=== PATIENT | male | born 1995 | race Caucasian/White ===

== ENCOUNTER 2018-12-23 01:37 | Observation (INO) ==
[2018-12-23] MEDS ORDERED: ONDANSETRON INJ 2 MG/ML 2 ML VIAL IV STA (01:44)
[2018-12-23] MEDS ORDERED: MoRPHine SULFATE 4 MG/ML 1 ML CARP\\VIAL IV PRN ×2 (01:44→13:36)
[2018-12-23] MEDS ORDERED: SODIUM CHLORIDE 0.9% 1000ML 1,000 ML IV SCH (01:45)
[2018-12-23 03:50] LABS: Alanine Aminotransferase 25 U/L (12-78); Albumin Globulin Ratio 1.4 (0.9-2); Albumin Level 4.4 gm/dl (3.4-5.0); Alkaline Phosphatase 60 U/L (45-117); Aspartate Aminotransferase 17 U/L (15-37); BUN Creatinine Ratio 13.7 (10-20); Bilirubin,Total 0.5 mg/dl (0.2-1); Blood Urea Nitrogen 17 mg/dl (7-18); Calcium 9.3 mg/dl (8.5-10.1); Carbon Dioxide 27 mmol/L (21-32); Chloride 106 mmol/L (98-107); Creatinine Clr Calc Pharmacy 101.2 ml/min; Est GFR (African American) 96.9; Est GFR (Non-African American) 83.6; Globulin 3.2 gm/dl (2.5-4.0); Glucose 92 mg/dl (70-99); Potassium 3.8 mmol/L (3.5-5.1); Sodium 139 mmol/L (136-145); Total Protein 7.6 gm/dl (6.4-8.2); Troponin I < 0.015 ng/ml (0-0.045)
[2018-12-23 03:54] LABS: Appearance Urine Clear (Clear); Bilirubin Urine Negative (Negative); Blood Urine Negative (Negative); Color Urine Yellow; Glucose Urine UA Negative (Negative); Ketones Urine Negative (Negative); Leukocyte Esterase Urine Negative (Negative); Nitrite Urine Negative (Negative); Protein Urine Negative (Negative); Specific Gravity Urine 1.009 (1.000-1.030); Urobilinogen Urine Negative (Negative)
[2018-12-23 04:05] LABS: Basophils # (auto) 0.01 K/uL (0-0.2); Basophils % (auto) 0.1 %; Eosinophils # (auto) 0.13 K/uL (0-0.5); Eosinophils % (auto) 1.6 %; Hematocrit (blood only) 43.9 % (42-52); Hemoglobin 15.7 g/dL (14.0-18.0); Immature Granulocytes # (auto) 0.01 K/uL (0.00-0.02); Immature Granulocytes % (auto) 0.1 %; Lymphocytes # (auto) 1.43 K/uL (1.2-3.4); Lymphocytes % (auto) 17.6 %; Mean Corpuscular Hgb Conc 35.8 g/dL (32-36); Mean Corpuscular Volume 84.3 fL (80-100); Mean Platelet Volume 9.3 fL (7.4-10.4); Monocytes # (auto) 0.63 K/uL (0.11-0.59); Monocytes % (auto) 7.7 %; Neutrophils # (auto) 5.93 K/uL (1.4-6.5); Neutrophils % (auto) 72.9 %; Platelet Count 177 K/uL (130-400); RDW Coefficient of Variation 12.2 % (11.5-14.5); RDW Standard Deviation 37.2 fL (36.4-46.3); Red Blood Count 5.21 M/uL (4.7-6.1); White Blood Count 8.14 K/uL (4.8-10.8)
[2018-12-23] MEDS ORDERED: IOVERSOL 100ml IV PRN (04:27)
[2018-12-23] MEDS ORDERED: cefOXitin 2,000 MG/60 ML BAG IV STA (05:27)
--- NOTE | 2018-12-23 06:35 | Emergency Department Note ---
History of Present Illness General Chief complaint: Abdominal Pain Stated complaint: PAIN IN LOWER RIGHT STOMACH Time Seen by Provider: 12/23/18 01:44 History of Present Illness Maximum Pain Intensity: 4 This is a 23-year-old male presenting to the emergency department for evaluation of abdominal pain worsening over the past 1 day. The patient states that he initially had pain in the mid abdomen, but now is complaining of worsening pain in the past 3 or 4 hours in the right lower quadrant. He does not report fever or chills. No chest pain, chest tightness, or shortness of breath. He has been eating, drinking, and using the bathroom as normal. The patient does not have a history of abdominal surgery. He does not report chronic illness. He rates his discomfort a dull 7/10. Patient was seen and evaluated in part during a [facility] downtime. Additional information may be scanned into the EMR regarding this visit. Home Medications Home Medications Medication Instructions Recorded Confirmed Type bupropion HCl [Wellbutrin XL] 300 mg PO QAM 12/23/18 12/23/18 History oxycodone-acetaminophen [Percocet] 1 - 2 tab PO Q4H PRN #15 tab 12/23/18 Rx Allergies Allergy/AdvReac Type Severity Reaction Status Date / Time No Known Allergies Allergy Unverified 12/23/18 04:19 Past Med/Surg History Medical History No chronic diseases present No significant past surgical history Social History Preferred Language: Palauan Communication Ability: Effective Sap Data Architect Required: No Beliefs That Will Affect Care: None Current Living Situation: Other Current Living Situation Comment: roommates Other Information That Helps Us Care for You: No Feels Safe at Home: Yes Safety Concerns: Feels Safe At This Time Smoking Status: Never smoker Hx Alcohol Use: Yes Alcohol type: beer, wine and hard liquor Hx Substance Use: No Review of Systems A total of 10 systems reviewed and were otherwise negative Physical Exam Vital Signs Vital Signs - 24 hr 12/23/18 01:41 12/23/18 03:41 12/23/18 05:30 Temperature 36.7 C Temperature Source Oral Sepsis Recent Fever Within 48 Hours No Sepsis New/Unexplained Change in Mental Status No Sepsis Action Taken by Nursing No Action Required Pulse Rate 83 Pulse Rate [Apical] Pulse Rate [Finger] 96 H 86 Pulse Rhythm [Apical] Pulse Rhythm [Finger] Pulse Strength [Finger] Respiratory Rate 16 18 18 Respiratory Effort / Characteristics Non-Labored Spontaneous Non-Labored Spontaneous Respiratory Depth Normal Normal Normal Respiratory Pattern Regular Regular Blood Pressure 151/84 H Blood Pressure [Left Arm] Blood Pressure [Right Arm] 129/82 132/79 Blood Pressure Mean 106 Blood Pressure Mean [Left Arm] Blood Pressure Mean [Right Arm] 97 96 Blood Pressure Position [Left Arm] Blood Pressure Position [Right Arm] Sitting Sitting Pulse Oximetry 99 98 98 Oxygen Delivery Method Room Air Room Air Room Air 12/23/18 06:24 12/23/18 07:00 12/23/18 09:08 Temperature 36.7 C Temperature Source Oral Sepsis Recent Fever Within 48 Hours Sepsis New/Unexplained Change in Mental Status Sepsis Action Taken by Nursing Pulse Rate Pulse Rate [Apical] Pulse Rate [Finger] 80 75 68 Pulse Rhythm [Apical] Pulse Rhythm [Finger] Regular Pulse Strength [Finger] Respiratory Rate 18 18 16 Respiratory Effort / Characteristics Non-Labored Spontaneous Respiratory Depth Normal Normal Normal Respiratory Pattern Regular Blood Pressure Blood Pressure [Left Arm] Blood Pressure [Right Arm] 132/78 121/69 99/78 L Blood Pressure Mean Blood Pressure Mean [Left Arm] Blood Pressure Mean [Right Arm] 96 86 85 Blood Pressure Position [Left Arm] Blood Pressure Position [Right Arm] Sitting Pulse Oximetry 96 96 99 Oxygen Delivery Method Room Air Room Air Room Air 12/23/18 09:58 12/23/18 12:17 Temperature 36.8 C 36.2 C L Temperature Source Oral Temporal Artery Scan Sepsis Recent Fever Within 48 Hours Sepsis New/Unexplained Change in Mental Status Sepsis Action Taken by Nursing Pulse Rate Pulse Rate [Apical] 91 H Pulse Rate [Finger] 89 Pulse Rhythm [Apical] Regular Pulse Rhythm [Finger] Regular Pulse Strength [Finger] Normal Respiratory Rate 18 17 Respiratory Effort / Characteristics Non-Labored Spontaneous Non-Labored Spontaneous Respiratory Depth Normal Normal Respiratory Pattern Regular Regular Blood Pressure Blood Pressure [Left Arm] 147/93 H Blood Pressure [Right Arm] 133/79 Blood Pressure Mean Blood Pressure Mean [Left Arm] 111 Blood Pressure Mean [Right Arm] 97 Blood Pressure Position [Left Arm] Lying Blood Pressure Position [Right Arm] Sitting Pulse Oximetry 98 96 Oxygen Delivery Method Room Air Room Air VITALS: Vitals are noted on the nurse's note and reviewed by myself. Vital signs stable. GENERAL: Well-developed, well-nourished, white male, who is in no acute distress and resting comfortably. Patient is cooperative with the examination. HEAD: Normocephalic atraumatic. HEART: Regular rate and rhythm without murmurs gallops or rubs. LUNGS: Clear to auscultation bilaterally without wheezes, rales or rhonchi. No retractions or accessory muscle use. ABDOMEN: Positive normal bowel sounds x 4. Soft with right lower quadrant tenderness. No rebound or guarding. MUSCULOSKELETAL: No muscle atrophy, erythema, or edema noted. Full range of motion in all extremities. No tenderness to palpation. NEURO: Patient was alert and oriented to person place and time. CN II through XII grossly intact. No focal neurological deficits. SKIN: The skin was without rashes, erythema, edema, or bruising. Capillary refill less than 2 seconds. Course Administered Medications Discontinued Medications Bupivacaine HCl (Marcaine 0.5% Mpf) Confirm Administered Dose 30 ml .ROUTE .STK- MED ONE Stop: 12/23/18 09:36 Last Admin: 12/23/18 12:02 Dose: 30 ml Documented by: [id number] Bupropion HCl (Wellbutrin-Xl) 300 mg PO QAM [facility] Stop: 01/23/19 08:59 Last Admin: 12/23/18 15:25 Dose: 300 mg Documented by: [id number] Hydromorphone HCl (Dilaudid) 0.25 mg IV Q5M PRN PRN Reason: PACU Use Only-Pain Stop: 12/23/18 15:18 Last Admin: 12/23/18 12:40 Dose: 0.25 mg Documented by: [id number] Admin: 12/23/18 12:35 Dose: 0.25 mg Documented by: [id number] Admin: 12/23/18 12:30 Dose: 0.25 mg Documented by: [id number] Admin: 12/23/18 12:25 Dose: 0.25 mg Documented by: [id number] Hydromorphone HCl (Dilaudid) Confirm Administered Dose 1 mg .ROUTE .STK-MED ONE Stop: 12/23/18 12:26 Last Admin: 12/23/18 14:14 Dose: Not Given Documented by: [id number] Sodium Chloride (Nss 1000ml) 1,000 mls @ 999 mls/hr IV .Q1H1M [facility]IS Stop: 12/23/18 02:45 Last Infusion: 12/23/18 02:59 Dose: 0 mls/hr Documented by: [id number] Admin: 12/23/18 01:59 Dose: 999 mls/hr Documented by: [id number] Cefoxitin Sodium (Mefoxin) 2,000 mg in 60 mls @ 100 mls/hr IV NOW STA Stop: 12/23/18 06:02 Last Infusion: 12/23/18 06:29 Dose: 0 mls/hr Documented by: [id number] Admin: 12/23/18 05:52 Dose: 100 mls/hr Documented by: [id number] Cefoxitin Sodium 2,000 mg/ (Dextrose) 60 mls @ 100 mls/hr IV ONCE CANDIS Stop: 12/24/18 12:14 Last Infusion: 12/23/18 14:17 Dose: 0 mls/hr Documented by: [id number] Admin: 12/23/18 11:35 Dose: 100 mls/hr Documented by: [id number] Lactated Ringer's (Lr) 1,000 mls @ 100 mls/hr IV .Q10H CANDIS Stop: 01/22/19 13:59 Last Admin: 12/23/18 14:20 Dose: 100 mls/hr Documented by: [id number] Ioversol (Optiray 320 100ml) 100 ml IV ONCE PRN PRN Reason: Interaction Checking Stop: 12/27/18 04:26 Last Admin: 12/23/18 04:28 Dose: 93 ml Documented by: [id number] Ondansetron HCl (Zofran) 4 mg IV NOW STA Stop: 12/23/18 01:45 Last Admin: 12/23/18 05:52 Dose: Not Given Documented by: [id number] Oxycodone/Acetaminophen (Percocet 5mg/325mg) 1 tab PO Q4H PRN PRN Reason: MODERATE Pain (Scale 4,5,6) Stop: 01/06/19 13:35 Last Admin: 12/23/18 17:13 Dose: 1 tab Documented by: [id number] Oxycodone/Acetaminophen (Percocet 5/325 Homepack) 1 homepack PO 1700 ONE Stop: 12/23/18 17:01 Last Admin: 12/23/18 17:14 Dose: 1 homepack Documented by: [id number] Medical Decision Making Differential Diagnosis Differential diagnosis: Etiologies such as biliary colic, cholecystitis, hepatitis, pancreatitis, cardiac disease, pancreatitis, gastritis, peptic ulcer disease, appendicitis, cystitis, diverticulitis, mesenteric ischemia, inflammatory bowel disease, ileus, bowel obstruction, testicular/adnexal torsion, aortic pathology, shingles, as well as others were considered Laboratory Data Result diagrams: 12/23/18 01:54 12/23/18 01:54 Lab Results 12/23/18 12/23/18 12/23/18 Range/Units 01:54 01:54 02:01 WBC 8.14 (4.8-10.8) K/uL RBC 5.21 (4.7-6.1) M/uL Hgb 15.7 (14.0-18.0) g/dL Hct 43.9 (42-52) % MCV 84.3 (80-100) fL MCH 30.1 (25-34) pg MCHC 35.8 (32-36) g/dL RDW Std Deviation 37.2 (36.4-46.3) fL RDW Coeff of Art 12.2 (11.5-14.5) % Plt Count 177 (130-400) K/uL MPV 9.3 (7.4-10.4) fL Immature Gran % (Auto) 0.1 % Neut % (Auto) 72.9 % Lymph % (Auto) 17.6 % [place] % (Auto) 7.7 % Eos % (Auto) 1.6 % Baso % (Auto) 0.1 % Immature Gran # (Auto) 0.01 (0.00-0.02) K/uL Neut # (Auto) 5.93 (1.4-6.5) K/uL Lymph # (Auto) 1.43 (1.2-3.4) K/uL [place] # (Auto) 0.63 H (0.11-0.59) K/uL Eos # (Auto) 0.13 (0-0.5) K/uL Baso # (Auto) 0.01 (0-0.2) K/uL Sodium 139 (136-145) mmol/L Potassium 3.8 (3.5-5.1) mmol/L Chloride 106 (98-107) mmol/L Carbon Dioxide 27 (21-32) mmol/L Anion Gap 6.0 (3-11) BUN 17 (7-18) mg/dl Creatinine 1.22 (0.6-1.4) mg/dl Est Cr Clr Drug Dosing 101.2 ml/min Est GFR ( Amer) 96.9 Est GFR (Non-Af Amer) 83.6 BUN/Creatinine Ratio 13.7 (10-20) Glucose 92 (70-99) mg/dl Calcium 9.3 (8.5-10.1) mg/dl Total Bilirubin 0.5 (0.2-1) mg/dl AST 17 (15-37) U/L ALT 25 (12-78) U/L Alkaline Phosphatase 60 (45-117) U/L Troponin I < 0.015 (0-0.045) ng/ml Total Protein 7.6 (6.4-8.2) gm/dl Albumin 4.4 (3.4-5.0) gm/dl Globulin 3.2 (2.5-4.0) gm/dl Albumin/Globulin Ratio 1.4 (0.9-2) Lipase 143 (73-393) U/L Urine Color Yellow Urine Appearance Clear (Clear) Urine pH 6.0 (4.5-7.5) Ur Specific [place] 1.009 (1.000-1.030) Urine Protein Negative (Negative) Urine Glucose (UA) Negative (Negative) Urine Ketones Negative (Negative) Urine Blood Negative (Negative) Urine Nitrite Negative (Negative) Urine Bilirubin Negative (Negative) Urine Urobilinogen Negative (Negative) Ur Leukocyte Esterase Negative (Negative) Imaging Data Radiologist's Impression: Preliminary Findings Only See Final Report For Complete Findings CT ABDOMEN & PELVIS With Contrast: The appendix measures up to 10 mm in maximum diameter. There is associated wall thickening, mural enhancement and adjacent fat stranding compatible with acute appendicitis. No evidence of adjacent fluid or appendicolith. No evidence of extraluminal gas to suggest bowel perforation. No evidence of abscess formation. MDM Narrative Physical exam and history were performed. Nursing notes, EMR, and Medication List were personally reviewed. Patient appears to have right lower quadrant abdominal pain on examination. IV access was established and labs were obtained. The patient was hydrated with normal saline and given IV morphine and Zofran. Out of concern for his symptoms CT scan with IV and oral contrast was performed. The patient's blood work is as above and was reviewed. He does not have a significantly elevated white blood cell count, gross anemia, bandemia, or significant electrolyte imbalance. Lipase and transaminases are not diagnostic. Patient CT scan was reviewed by myself and radiology and appears consistent with acute appendicitis. The case was discussed with the on-call surgeon, Dr. Alex botello, who will evaluate the patient here in the department. I did start the patient on Mefoxin. Please see Dr. Gonsales dictation for further patient course, plan, and disposition. The chart was completed utilizing [employer] Speech Voice Recognition Software. Grammatical errors, random word insertions, pronoun errors, and incomplete sentences are an occasional consequence of this system due to software limitations, ambient noise, and hardware issues. Any formal questions or concerns about the content, text, or information contained within the body of this dictation should be directly addressed to the provider for clarification. . Impression & Plan Acute appendicitis Discharge Plan Visit Data *Final* Discharge Date/Time: 12/23/18 09:30 Chief Complaint: Abdominal Pain Stated Complaint: PAIN IN LOWER RIGHT STOMACH ED Provider: Oswaldo Quinones ED Midlevel Provider: Brandon Jaramillo Discharge Problem: Acute appendicitis Patient Disposition: Still a Patient Discharge Instructions Interventions: ED Discharge Assessment Last Done: 12/23/18 09:30
--- NOTE | 2018-12-23 07:14 | CT Scan Report ---
CT OF THE ABDOMEN AND PELVIS WITH CONTRAST CLINICAL HISTORY: Right lower quadrant abdominal pain. COMPARISON STUDY: None. TECHNIQUE: Following IV administration of 93 mL of Optiray-320, axial images of the abdomen and pelvi s were obtained from the lung bases to the proximal femurs. Images were reviewed in the axial, sagitt al, and coronal planes. IV contrast was administered without complication. Automated exposure contro l was utilized for the study. A dose lowering technique was utilized adhering to the principles of A MEG. Oral contrast was administered. CT DOSE: 451.27 mGy.cm FINDINGS: Lung bases are clear. No pneumatosis, free air or portal venous gas is present. The liver, spleen, adrenal glands, kidneys and pancreas are normal. There is no biliary or pancreatic ductal dil atation. There is no hydronephrosis. The retrocecal appendix is dilated, measuring 1.1 cm in caliber. There is mild to moderate adjacent infiltration. There is no free air or abscess. There is no eviden ce for a bowel obstruction. No lymphadenopathy is present. Visualized skeletal structures are unremar kable. IMPRESSION: Acute appendicitis. Dilated retrocecal appendix with mild to moderate adjacent infiltrat ion and fluid. No free air or abscess. Electronically signed by: Lucas Pickens M.D. 12/23/2018 7:13 AM
--- NOTE | 2018-12-23 07:19 | History & Physical Report ---
Date of Service December 23, 2018 Assessment & Plan (1) Acute appendicitis: 23-year-old male with acute appendicitis Plan for laparoscopic appendectomy The risks of the procedure were discussed to include but not limited to bleeding, infection, damage to surrounding structures, normal appendix, conversion to open, need for future more extensive surgery, abscess, and the risk of anesthesia Preoperative antibiotics administered in the emergency department Observation postop, potential discharge this afternoon or tomorrow Present on Admission?: Yes History of Present Illness Primary Care Provider: [facility] 23-year-old male presented to the emergency department with chief complaint of right lower quadrant abdominal pain. Pain started yesterday in the middle of the day is diffuse achy abdominal pain. Migrated to his right lower quadrant last night. Denies any nausea or diarrhea. Does report anorexia. No similar episodes in the past. No family history of inflammatory bowel disease. Allergies Allergy/AdvReac Type Severity Reaction Status Date / Time No Known Allergies Allergy Unverified 12/23/18 04:19 Home Medications Home Medications Medication Instructions Recorded Confirmed Type bupropion HCl [Wellbutrin XL] 300 mg PO QAM 12/23/18 12/23/18 History Past Med/Surg History Medical History No chronic diseases present No significant past surgical history Social History Preferred Language: [place]ralt[place] Feels Safe at Home: Yes Smoking Status: Never smoker Review of Systems Review of Systems: All systems reviewed & are unremarkable except as noted in HPI & below Physical Exam Constitutional: WD/WN, vitals as above Eyes: PERRL, conjunctivae normal, anicteric sclerae ENMT: external ear and nose normal, oropharynx normal Neck: trachea midline, no thyromegaly Respiratory: normal respiratory effort, lungs clear to auscultation Cardiovascular: RRR, no murmur, no edema Gastrointestinal (Abdomen): Percussion/Palpation: + abdomen tender (Tender to palpation in right lower quadrant) and abdomen soft; no guarding and no hernia Musculoskeletal: no cyanosis or clubbing, extremities motor strength 5/5 Skin: no rashes, warm and dry Neurologic: PERRL, EOMI, accommodation nl, no face palsy, no dysarthria Psychiatric: A+Ox3, euthymic affect Lymphatic: no cervical or axillary lymphadenopathy Results & Data Vital Signs (Past 12 Hours) Vital Signs Temp Pulse Pulse Resp BP BP Pulse Ox 12/23/18 07:00 75 18 121/69 96 12/23/18 06:24 80 18 132/78 96 12/23/18 05:30 86 18 132/79 98 12/23/18 03:41 96 H 18 129/82 98 12/23/18 01:41 36.7 C 83 16 151/84 H 99 Laboratory Results Laboratory Results - last 24 hr 12/23/18 12/23/18 12/23/18 01:54 01:54 02:01 WBC 8.14 RBC 5.21 Hgb 15.7 Hct 43.9 MCV 84.3 MCH 30.1 MCHC 35.8 RDW Std Deviation 37.2 RDW Coeff of Art 12.2 Plt Count 177 MPV 9.3 Immature Gran % (Auto) 0.1 Neut % (Auto) 72.9 Lymph % (Auto) 17.6 [place] % (Auto) 7.7 Eos % (Auto) 1.6 Baso % (Auto) 0.1 Immature Gran # (Auto) 0.01 Neut # (Auto) 5.93 Lymph # (Auto) 1.43 [place] # (Auto) 0.63 H Eos # (Auto) 0.13 Baso # (Auto) 0.01 Sodium 139 Potassium 3.8 Chloride 106 Carbon Dioxide 27 Anion Gap 6.0 BUN 17 Creatinine 1.22 Est Cr Clr Drug Dosing 101.2 Est GFR ( Amer) 96.9 Est GFR (Non-Af Amer) 83.6 BUN/Creatinine Ratio 13.7 Glucose 92 Calcium 9.3 Total Bilirubin 0.5 AST 17 ALT 25 Alkaline Phosphatase 60 Troponin I < 0.015 Total Protein 7.6 Albumin 4.4 Globulin 3.2 Albumin/Globulin Ratio 1.4 Lipase 143 Urine Color Yellow Urine Appearance Clear Urine pH 6.0 Ur Specific [place] 1.009 Urine Protein Negative Urine Glucose (UA) Negative Urine Ketones Negative Urine Blood Negative Urine Nitrite Negative Urine Bilirubin Negative Urine Urobilinogen Negative Ur Leukocyte Esterase Negative Diagnostic Findings CT OF THE ABDOMEN AND PELVIS WITH CONTRAST CLINICAL HISTORY: Right lower quadrant abdominal pain. COMPARISON STUDY: None. TECHNIQUE: Following IV administration of 93 mL of Optiray-320, axial images of the abdomen and pelvis were obtained from the lung bases to the proximal femurs. Images were reviewed in the axial, sagittal, and coronal planes. IV contrast was administered without complication. Automated exposure control was utilized for the study. A dose lowering technique was utilized adhering to the principles of ALARA. Oral contrast was administered. CT DOSE: 451.27 mGy.cm FINDINGS: Lung bases are clear. No pneumatosis, free air or portal venous gas is present. The liver, spleen, adrenal glands, kidneys and pancreas are normal. There is no biliary or pancreatic ductal dilatation. There is no hydronephrosis. The retrocecal appendix is dilated, measuring 1.1 cm in caliber. There is mild to moderate adjacent infiltration. There is no free air or abscess. There is no evidence for a bowel obstruction. No lymphadenopathy is present. Visualized skeletal structures are unremarkable. IMPRESSION: Acute appendicitis. Dilated retrocecal appendix with mild to moderate adjacent infiltration and fluid. No free air or abscess.
[2018-12-23] MEDS ORDERED: BUPIVACAINE 0.5 % 5 MG/1 ML MPF 30ML VIAL ONE (09:35)
[2018-12-23] MEDS ORDERED: DEXAMETHASONE SOD INJ 4 MG/ML VIAL ONE (10:05)
[2018-12-23] MEDS ORDERED: ROCURONIUM BROMIDE 10 MG/ML 5 ML VIAL ONE (10:05)
[2018-12-23] MEDS ORDERED: fentaNYL citrate 100 MCG/2 ML VIAL ONE (10:05)
[2018-12-23] MEDS ORDERED: ONDANSETRON INJ 2 MG/ML 2 ML VIAL ONE (10:05)
[2018-12-23] MEDS ORDERED: SUCCINYLCHOLINE CHLORIDE 20 MG/ML 10 ML VIAL ONE (10:05)
[2018-12-23] MEDS ORDERED: LIDOCAINE HCL 2% 2 ML VIAL/AMP(20MG/ML) INFIL ONE (10:05)
[2018-12-23] MEDS ORDERED: PROPOFOL IV EMULSION 10 MG/ML 20 ML VIAL IV ONE (10:05)
[2018-12-23] MEDS ORDERED: MIDAZOLAM HCL 1 MG/ML 2ML VIAL ONE (10:05)
--- NOTE | 2018-12-23 10:16 | Anesthesiology Consultation ---
Date of Service December 23, 2018 History Surgery Operation Date: 12/23/18 07:00 Proposed Procedures p Laparoscopic Appendectomy - Devante Gonsales, , FACS Height/Weight Height: 5 ft 11 in Weight: 90.1 kg Allergies Allergy/AdvReac Type Severity Reaction Status Date / Time No Known Allergies Allergy Unverified 12/23/18 04:19 Medications Home Medications Medication Instructions Recorded Confirmed Last Taken bupropion HCl [Wellbutrin XL] 300 mg PO QAM 12/23/18 12/23/18 Unknown Active Medications Generic Name Dose Route Start Last Admin Trade Name Freq PRN Reason Stop Dose Admin Ioversol 100 ml 12/23/18 04:27 12/23/18 04:28 Optiray 320 100ml IV 12/27/18 04:26 93 ml ONCE PRN Administration Interaction Checking NPO Date Last Intake of Fluids: 12/23/18 Time Last Intake of Fluids: 03:30 Last Intake of Fluids Comment: contrast dye Date Last Intake of Solids: 12/22/18 Time Last Intake of Solids: 17:00 Last Intake of Solids Comment: hotdog Past Medical History Medical History No chronic diseases present No significant past surgical history Exercise / Class Metabolic Activity 1 > 8 Run/Swim/Ski/Tennis Past Anesthesia History No Hx of Anesthesia Complications and No Family Hx of Anesthesia Complications History of PONV No Hx of PONV and No Hx of Motion Sickness Social History Smoking Status: Never smoker Physical Exam Vital Signs Last Vital Signs Temp 36.8 C 12/23/18 09:58 Pulse 89 12/23/18 09:58 Resp 18 12/23/18 09:58 BP 133/79 12/23/18 09:58 Pulse Ox 98 12/23/18 09:58 Constitutional not obese ENMT Mouth: no dentition abnormality Thyromental Distance: > or= 3.5 Finger Breadths Mallampati Class: II Neck normal visual inspection and trachea midline; neck extension not limited Respiratory normal respiratory effort Auscultation: lungs clear to auscultation bilaterally Cardiovascular Rate/Rhythm: regular rate and regular rhythm Heart Sounds: no murmur Musculoskeletal Spine: normal cervical ROM Neurologic moves all extremities Motor/Sensory: no sensory deficit Psychiatric Orientation: alert and oriented x 3
[2018-12-23] MEDS ORDERED: PROMETHAZINE HCL 12.5 MG in SODIUM CHLORIDE 0.9% 50 ML IV PRN ×2 (10:17→11:23)
[2018-12-23] MEDS ORDERED: FLUMAZENIL 0.1 MG/1 ML 10 ML VIAL IV PRN ×2 (10:17→11:25)
[2018-12-23] MEDS ORDERED: ePHEDrine sulfate 50 MG/ML AMP IV PRN ×2 (10:17→11:23)
[2018-12-23] MEDS ORDERED: NALOXONE HCL 0.4 MG/1 ML VIAL/CARP IV PRN ×2 (10:17→11:25)
[2018-12-23] MEDS ORDERED: HYDROmorphone INJ 1 MG/ML SYRINGE IV PRN (10:17)
[2018-12-23] MEDS ORDERED: ONDANSETRON INJ 2 MG/ML 2 ML VIAL IV PRN ×3 (10:17→13:36)
[2018-12-23] MEDS ORDERED: ATROPINE SULFATE 0.1 MG/ML 10ML SYR IV PRN ×2 (10:17→11:24)
[2018-12-23] MEDS ORDERED: ACETAMINOPHEN 1000 MG/100 ML IV IV ONE (10:22)
[2018-12-23] MEDS ORDERED: NEOSTIGMINE METHYLSULFATE 5 MG/5 ML SYR ONE (12:08)
[2018-12-23] MEDS ORDERED: GLYCOPYRROLATE 0.2 MG/ML VIAL ONE (12:08)
[2018-12-23] MEDS ORDERED: KETOROLAC 30 MG/ML VIAL ONE (12:08)
--- NOTE | 2018-12-23 12:09 | Operative Report ---
Post Operative Report Pre & Post Diagnosis Operation Date: 12/23/18 07:00 Pre-Op Diagnosis: Lower Right Quadrant Pain Post-Op Diagnosis: Lower Right Quadrant Pain Procedure Operation Date: 12/23/18 07:00 Actual Procedures p Laparoscopic Appendectomy(Not Applicable) - Devante Gonsales DO, MARTY Surgeon Devante Gonsales DO, MARTY Upper Cutter Out Faizan Bourne Estimated Blood Loss 3 Findings Consistent with Post-Op Diagnosis Acute, suppurative, nonperforated appendicitis Specimens Appendix Anesthesia Type General Complications none Disposition Accompanied Patient To Recovery: No Disposition: Recovery Room Indications 23-year-old male presents with signs and symptoms of acute appendicitis, plan for laparoscopic appendectomy. The risks of the procedure were discussed, all questions were answered, and the patient agreed to proceed with surgery as planned. Description of Procedure The patient was properly identified, consented, and taken to the operating room where he was placed in the supine position. General endotracheal anesthesia was induced. SCDs and a safety belt were placed. Preoperative antibiotics were administered. A Quinn catheter was placed. The patient's abdomen was prepped and draped in the standard sterile fashion. Surgical timeout was performed and all parties were in agreement that this was the correct patient and procedure to be performed and we continued as planned. A curvilinear infraumbilical incision was made with electrocautery and deepened down to the fascia with blunt dissection. The base of the umbilicus was grasped with a Debo and elevated towards the ceiling. An incision was made in the midline fascia with a knife and entry into the peritoneum was confirmed. Stay suture of 0 Vicryl was placed and a Wade trocar was inserted. The abdomen was insufflated with carbon dioxide which the patient tolerated without incident. The laparoscope was inserted and no damage from initial trocar placement was noted, no gross abnormalities were noted within the 4 quadrants the abdomen. 5 mm ports were then placed in the left lower quadrant with care not to damage the epigastric vessels, and in the suprapubic midline with care not to damage the bladder. The patient was placed in Trendelenburg position and rotated towards the left. The small bowel was swept away from the right lower quadrant. The cecum was grasped with an atraumatic grasper exposing the appendix. The appendix was moderately inflamed and there was no evidence of perforation. It was partially retrocecal. There was minimal reactive fluid in the pelvis. A window was created betweenthe base of the appendix and the mesoappendix. A grant loaded endoscopic stapler was then used to divide the appendix at its base. Harmonic scalpel was then used to divide the mesoappendix. Hemostasis was good. The appendix was placed in an Endo Catch bag and removed through the umbilical port site. The right lower quadrant and pelvis was irrigated and hemostasis was found to be good. 5 mm trochars were removed under direct visualization and the abdomen was allowed to collapse. The umbilical port site fascia was closed with 0 Vicryl suture. The wound was irrigated, and the skin of all ports was closed with 4-0 Monocryl subcuticular sutures. Dermabond was placed over the wounds. The patient was extubated in the operating room and taken to the PACU where he recovered without apparent incident. All sponge, instrument and needle counts were correct at the conclusion of the procedure. The patient tolerated the procedure well. Gisela Renataroxanne, the physician's podiatry assistant was present and scrubbed for the entire to the case. He was critical in positioning the patient, prepping and draping, retraction and exposure, driving the laparoscope, removal of the appendix, closure of the incisions, and placement of the dressings. I attest to the content of the Intraoperative Record and any orders documented t herein. Any exceptions are noted below.
[2018-12-23] MEDS ORDERED: cefOXitin 2,000 MG in DEXTROSE 5% 50 ML IV SCH (12:15)
[2018-12-23] MEDS: HYDROmorphone INJ 1 MG/ML SYRINGE IV PRN ×4 (12:25→12:40)
[2018-12-23] MEDS ORDERED: HYDROmorphone INJ 1 MG/ML SYRINGE ONE (12:25)
--- NOTE | 2018-12-23 12:56 | Anesthesiology Progress Note ---
Date of Service December 23, 2018 Anesthesia Post Procedure Vital Signs Vital Signs: Temp Pulse Pulse Pulse Resp BP BP 12/23/18 12:45 79 14 122/87 12/23/18 12:35 73 18 136/83 12/23/18 12:25 73 17 150/80 H 12/23/18 12:17 36.2 C L 91 H 17 147/93 H 12/23/18 09:58 36.8 C 89 18 12/23/18 09:08 36.7 C 68 16 12/23/18 07:00 75 18 12/23/18 06:24 80 18 12/23/18 05:30 86 18 12/23/18 03:41 96 H 18 12/23/18 01:41 36.7 C 83 16 151/84 H BP Pulse Ox 12/23/18 12:45 95 12/23/18 12:35 97 12/23/18 12:25 96 12/23/18 12:17 96 12/23/18 09:58 133/79 98 12/23/18 09:08 99/78 L 99 12/23/18 07:00 121/69 96 12/23/18 06:24 132/78 96 12/23/18 05:30 132/79 98 12/23/18 03:41 129/82 98 12/23/18 01:41 99 Pain Intensity Right Abdomen: Pain Intensity: 2 Abdomen: Pain Intensity: 4 Transfer of Care Handoff Completed per policy Notes Mental Status: alert / awake / arousable Patient Amnestic to Procedure: Yes Nausea / Vomiting: adequately controlled Pain: adequately controlled Airway Patency, RR, SpO2: stable & adequate BP & HR: stable & adequate Hydration State: stable & adequate Anesthetic Complications: no major complications apparent
[2018-12-23] MEDS ORDERED: OXYCODONE/ACETAMINOPHEN 5mg/325mg TAB PO PRN ×2 (13:36)
[2018-12-23] MEDS ORDERED: LACTATED RINGER'S 1,000 ML IV SCH (14:00)
[2018-12-23] MEDS ORDERED: PERCOCET 5/325MG HOMEPACK PO ONE (17:00)
[2018-12-24] MEDS ORDERED: BuPROPion XL 300 MG TABCR PO SCH (09:00)
--- NOTE | 2018-12-27 12:43 | Discharge Summary ---
Date of Service December 27, 2018 Admission HPI Per Admitting Provider 23-year-old male presented to the emergency department with chief complaint of right lower quadrant abdominal pain. Pain started yesterday in the middle of the day is diffuse achy abdominal pain. Migrated to his right lower quadrant last night. Denies any nausea or diarrhea. Does report anorexia. No similar episodes in the past. No family history of inflammatory bowel disease. Principal Diagnosis Acute appendicitis Discharge Exam Gastrointestinal (Abdomen) Inspection/Auscultation: + abdominal surgical incision (clean, dry) Percussion/Palpation: abdomen soft Discharge Data Allergies Allergy/AdvReac Type Severity Reaction Status Date / Time No Known Allergies Allergy Unverified 12/23/18 04:19 Consultations 12/23/18 05:27 Consult General Surgery Stat Procedures Performed Operation Date: 12/23/18 07:00 Actual Procedures p Laparoscopic Appendectomy(Not Applicable) - Devante Gonsales DO, FACS Ordered Studies 12/23/18 01:44 CT abd pelvis oral and IV con Stat Hospital Course (1) Acute appendicitis: 23 y/o male presented to the ED with c/o RLQ pain. CT was consistent with appendicitis. He was taken to the OR later that morning for laparoscopic appendectomy. The procedure was well tolerated, he was transferred to the surgical floor for observation. Later that afternoon he was tolerating diet and oral analgesics and was stable for discharge. Total Time Total Time Spent Total Time Spent (In Minutes): 15 Discharge Plan Discharge Items Patient Disposition: Home - Self-Care Reason For Visit: APPENDICITIS Discharge Diagnosis: appendicitis Discharge Goals: Decrease discomfort Activity: Per 'Additional Instructions' section Lifting: No more than 10 pounds Bathing: No limitations Driving/Machine Use: Resume 3 days after discharge Driving/Machine Use Comment: when pain free Non-emergency contact: Surgeon Call non-emergency contact if: you have any medication questions, your pain is not controlled, you have a fever, your temperature is above 101.5 and your wound has increased redness Follow-up/Referrals: Devante Gonsales DO, FACS [Physician] - (In 2 weeks, call to make an appt) [facility] [Primary Care Provider] - Diet: Regular Addtl Provider Instructions: Prescriptions: New oxycodone-acetaminophen [Percocet] 5-325 mg tablet 1 - 2 tab PO Q4H PRN (Reason: pain) Qty: 15 RF: 0 Continued bupropion HCl [Wellbutrin XL] 300 mg Tablet Extended Release 24 Hr 300 mg PO QAM RF: 0 Stand-Alone Forms: [employer], [facility]/Other Patient Handouts: Appendectomy, Post Op Pain Manage Home Meds, Appendectomy Laparoscopic Dc Discharge Orders: Discharge Order (Routine); Ordered 12/23/18 Ordered By: Faizan Bourne Jr Admission Data Admit Date/Time: 12/23/18 12:19 Attending Provider: Devante Gonsales Admit Provider: Devante Gonsales Primary Care Provider: [facility] Other Providers: Devante Gonsales Service: Surgical Services Other Interventions: Discharge Summary Assessment (RN) Last Done: 12/23/18 16:28 DC Date/Time DO NOT enter until pt leaves facility: 12/23/18 17:19
== END 2018-12-23 17:19 | disposition home or self-care (01) ==
LOC: ED 01:37 → 3N 09:30 → ASU 09:30
DX: K35.80 Unspecified acute appendicitis